=== PATIENT | female | born 1995 | race Two or more races ===

== ENCOUNTER 2023-04-26 19:05 | Inpatient (IN) | payer OTHER ==
[~2023-04-26] VITALS: Ht 160 cm; Wt 77.1 kg
--- NOTE | 2023-04-26 19:23 | NUR ---
PTE ALERTA Y ORIENTADA X 3 ESFERAS QUIEN REFIERE ABCESO EN GLUTEO LT DESDE EL SABADO EL CUAL NO ESTA SUPURANDO AUN.
[2023-04-27] MEDS ORDERED: DROSPIRENONE-E1 EAC1 (16:25)
== END 2023-04-29 13:43 | disposition home or self-care (01) | DRG 349 ==
LOC: ER 19:05 → SURH 23:32 → SEC-K 23:32 → SURH 04-27 01:45
PROVIDERS: ADMIT Colon & Rectal Surgery; ATTEND Colon & Rectal Surgery
PROC: 0DBP7ZZ Excision of Rectum, Via Natural or Artificial Opening (ICD-10-PCS; 2023-04-27)
PROC: 0DBQ7ZZ Excision of Anus, Via Natural or Artificial Opening (ICD-10-PCS; principal; 2023-04-27 10:15)
DX: K60.5 Anorectal fistula (principal)

== ENCOUNTER 2023-07-13 05:40 | Day surgery (SDC) | payer OTHER ==
[~2023-07-13 05:40] MED LIST: CELEBREX50 MG PO; DROSPIRENONE-E1 EAC1; FUSION PLUS CA1 EACH PO
== END 2023-07-13 15:55 | disposition home or self-care (01) ==
LOC: CIR.AMB 05:40
PROVIDERS: ATTEND Colon & Rectal Surgery
DX: K60.5 Anorectal fistula (principal); I10 Essential (primary) hypertension; Z20.822 Contact with and (suspected) exposure to COVID-19; K64.1 Second degree hemorrhoids; F41.9 Anxiety disorder, unspecified; K64.8 Other hemorrhoids